=== PATIENT | female | born 1955 | race American Indian/Alaskan Native ===

== ENCOUNTER 2016-03-09 11:47 | Outpatient (CLI) | payer MEDICAID ==
--- NOTE | 2016-03-09 16:27 | Magnetic Resonance Report ---
MRI OF THE HIPS: HISTORY: Right hip pain. PROCEDURE: A multiplanar, multiphase examination was performed without contrast. Selected fat saturation inversion recovery images were used. FINDINGS: The contour of the femoral heads is normal bilaterally. There is no abnormal signal within the femurs or acetabula bilaterally. There is no evidence of joint effusion or soft tissue mass. IMPRESSION: Normal study.
== END 2016-03-09 11:48 | disposition home or self-care (01) ==
LOC: MRI 11:47
PROVIDERS: ATTEND Physical Medicine & Rehabilitation
DX: M25.551 Pain in right hip (principal)
CPT/HCPCS: 73721

== ENCOUNTER 2016-03-26 11:59 | Outpatient (CLI) | payer MEDICAID ==
--- NOTE | 2016-03-26 12:46 | XRay Report ---
RIGHT CLAVICLE, 2 views: History: Pain, injury. The bony architecture is intact without evidence of fracture or dislocation. No significant soft tissue abnormality is seen. IMPRESSION: Normal right clavicle.
== END 2016-03-26 12:00 | disposition home or self-care (01) ==
LOC: XRAY 11:59
DX: M25.519 Pain in unspecified shoulder (principal); Z87.828 Personal history of other (healed) physical injury and trauma

== ENCOUNTER 2016-06-05 13:14 | Emergency (ER) | payer MEDICAID ==
[2016-06-05 13:54] VITALS: BP 140/77
== END 2016-06-05 21:22 | disposition left against medical advice (07) ==
LOC: ED 13:14
DX: R21 Rash and other nonspecific skin eruption (principal); E11.9 Type 2 diabetes mellitus without complications; J45.909 Unspecified asthma, uncomplicated; I10 Essential (primary) hypertension; Z88.2 Allergy status to sulfonamides; Z91.010 Allergy to peanuts; Z91.040 Latex allergy status; Z53.21 Procedure and treatment not carried out due to patient leaving prior to being seen by health care provider